=== PATIENT | female | born 1975 | race Caucasian/White ===

== ENCOUNTER 2016-09-17 20:39 | Emergency (ER) | payer BC ==
[2016-09-17 20:58] LABS: PH,URINE 6.5 (5.0 - 9.0); URINE BILIRUBIN NEGATIVE (NEGATIVE); URINE BLOOD TRACE (NEGATIVE); URINE GLUCOSE (UA) NORMAL (NORMAL); URINE KETONE 3+ (NEGATIVE); URINE LEUKOCYTE ESTERASE TRACE (NEGATIVE); URINE NITRATE NEGATIVE (NEGATIVE); URINE PROTEIN TRACE (NEGATIVE); UROBILINOGEN NORMAL mg/dL (<1.0)
[2016-09-17 21:17] LABS: URINE BACTERIA TRACE (NONE SEEN); URINE RBC 0-5 /[HPF] (0-2); URINE SQUAMOUS EPITHELIAL CELL 0-10 /[HPF] (NONE SEEN); URINE WBC RARE /[HPF] (0-5)
[2016-09-17 21:20] LABS: BASO % 0.2 % (0.1-1.2); EOS # 0.1 10_X3_uL (0.0-0.4); EOS % 0.7 % (0.7-5.8); GRAN # 9.8 10_X3_uL (1.6-6.1); GRAN % 82.8 % (34.0-71.1); HEMOGLOBIN 13.7 g/dL (11.2-15.7); LYMPH # 1.6 10_X3_uL (1.2-3.7); LYMPH % 13.1 % (19.3-51.7); MEAN CORPUSCULAR HEMOGLOBIN 30.7 pg (27.0-33.0); MEAN CORPUSCULAR HGB CONC 33.4 g/dL (32.0-36.0); MEAN CORPUSCULAR VOLUME 91.9 fL (79-95); MEAN PLATELET VOLUME 9.9 fl (7.5-11.5); MONO # 0.4 10_X3_uL (0.2-0.9); MONO % 3.2 % (4.7-12.5); PLATELET COUNT 308 x10_3/uL (182-369); RED BLOOD COUNT 4.46 x10_6/uL (3.9-5.2); RED CELL DISTRIBUTION WIDTH 12.8 % (11.7-14.4); WHITE BLOOD COUNT 11.8 x10_3/uL (4.0-10.0)
[2016-09-17 21:36] LABS: ALBUMIN 4.1 gm/dL (3.4-5.0); ALKALINE PHOSPHATASE 69 U/L (50-136); ALT/SGPT 15 U/L (3.5-33.9); AST/SGOT 16 U/L (7.04-26.96); BILIRUBIN,TOTAL 0.41 mg/dL (0.0-1.0); BLOOD UREA NITROGEN 10 mg/dL (7-18); CALCIUM 8.7 mg/dL (8.7-10.7); CARBON DIOXIDE 24 mmol/L (21-32); CREATININE 0.5 mg/dL (0.6-1.3); GLUCOSE,RANDOM 125 mg/dL (70-99); POTASSIUM 4.1 mmol/L (3.5-5.1); SODIUM 140 mmol/L (136-145); TOTAL PROTEIN 7.5 gm/dL (6.4-8.2)
== END 2016-09-17 22:20 | disposition home or self-care (01) ==
LOC: ER 20:39
PROVIDERS: Emergency Medicine
DX: R10.31 Right lower quadrant pain (principal); R30.0 Dysuria; R11.0 Nausea; R19.7 Diarrhea, unspecified; F32.9 Major depressive disorder, single episode, unspecified; Z98.51 Tubal ligation status; E53.8 Deficiency of other specified B group vitamins; Z79.899 Other long term (current) drug therapy
CPT/HCPCS: 36415; 74150; 80053; 81001; 81025; 85025; 99070; 99284-25